=== PATIENT | female | born 1970 | race Caucasian/White ===

== ENCOUNTER → 2018-11-08 | Outpatient (CLI) | payer OTHER | END | disposition home or self-care (01) | LOC: RAD 13:19 | DX: R05 Cough (principal); H66.93 Otitis media, unspecified, bilateral; R50.9 Fever, unspecified ==

== ENCOUNTER → 2018-11-25 | Outpatient (CLI) | payer OTHER | END | disposition home or self-care (01) | LOC: RAD 10:48 | DX: M47.817 Spondylosis without myelopathy or radiculopathy, lumbosacral region (principal); G25.81 Restless legs syndrome; M54.16 Radiculopathy, lumbar region; M79.605 Pain in left leg; M79.604 Pain in right leg ==

== ENCOUNTER → 2020-06-05 | Outpatient (CLI) | payer BC ==
[2020-06-05 08:55] LABS: URINE AMPHETAMINES < 1000 (1000ng/ml); URINE BARBITURATES < 200 (200ng/ml); URINE CANNABINOIDS (THC) < 50 (50ng/ml); URINE COCAINE < 300 (300ng/ml); URINE METHADONE < 300 (300ng/ml); URINE OPIATES < 300 (300ng/ml)
[2020-06-05 08:59] LABS: URINE BENZODIAZEPINES < 200 (200ng/ml)
[2020-06-05 09:00] LABS: URINE PHENCYCLIDINE < 25 (25ng/ml)
== END | disposition home or self-care (01) ==
LOC: LAB 08:05
PROVIDERS: ATTEND Nurse Practitioner Psychiatric/Mental Health
DX: F90.2 Attention-deficit hyperactivity disorder, combined type (principal)

== ENCOUNTER → 2020-06-14 | Outpatient (CLI) | payer BC ==
[2020-06-14 10:28] LABS: PTH INTACT 75.5 pg/mL (18.5-88.0); VITAMIN D, 25-HYDROXY 43.4 ng/mL (30-100)
== END | disposition home or self-care (01) ==
LOC: LAB 08:54
PROVIDERS: ATTEND Nurse Practitioner Family
DX: E83.51 Hypocalcemia (principal)

== ENCOUNTER 2021-04-25 19:08 | Emergency (ER) | payer BC ==
[2021-04-25 20:01] LABS: BASO % 0.2 % (0.0-1.0); EOS % 0.1 % (1.0-4.0); HEMATOCRIT 39.8 % (37.0-47.0); LYMPH # 1.3 10*3/uL (1.3-4.4); LYMPH % 12.5 % (27.0-41.0); MEAN CELL VOLUME 91.5 fl (81.0-99.0); MEAN CORPUSCULAR HGB 30.1 pg (27.0-31.0); MEAN CORPUSCULAR HGB CONC 32.9 g/dl (33.0-37.0); MONO # 0.8 10*3/uL (0.1-1.0); MONO % 7.6 % (3.0-9.0); NEUT # 8.4 10*3/uL (2.3-7.9); NEUT % 79.2 % (47.0-73.0); PLATELET COUNT AUTOMATED 268 10*3/uL (130-400); RED BLOOD COUNT 4.35 10*6/uL (4.10-5.10); RED CELL DISTRI WIDTH 12.1 % (0-14.5); WHITE BLOOD COUNT 10.6 10*3/uL (4.8-10.8)
[2021-04-25 20:12] LABS: ACT PARTIAL THROMBO TIME 24.1 SECONDS (20.0-32.1); INTERNATIONAL NORM RATIO 1.1 (2.0-3.5)
[2021-04-25 20:19] LABS: ALBUMIN 4.3 gm/dl (3.1-4.5); ALKALINE PHOSPHATASE 61 U/L (45-117); BUN 12 mg/dl (7-24); CHLORIDE 104 mmol/L (98-107); CREATININE 1.26 mg/dL (0.55-1.02); POTASSIUM 3.3 mmol/L (3.5-5.1); SGOT/AST 17 IU/L (3-35); SGPT/ALT 22 U/L (12-78); SODIUM 137 mmol/L (136-145); TOTAL PROTEIN 7.9 gm/dL (6.4-8.2)
[2021-04-25 20:21] LABS: TROPONIN I < 0.015 ng/ml (<0.045)
== END 2021-04-26 01:33 | disposition home or self-care (01) ==
LOC: ED 19:08
PROVIDERS: Emergency Medicine
DX: T67.5XXA Heat exhaustion, unspecified, initial encounter (principal); F41.0 Panic disorder [episodic paroxysmal anxiety]; E87.6 Hypokalemia; X58.XXXA Exposure to other specified factors, initial encounter; Y93.89 Activity, other specified; Y92.89 Other specified places as the place of occurrence of the external cause; Y99.8 Other external cause status

== ENCOUNTER → 2021-07-17 | Outpatient (CLI) | payer BC | END | disposition home or self-care (01) | LOC: COVID19 18:05 | PROVIDERS: ATTEND Internal Medicine | DX: U07.1 COVID-19 (principal) ==

== ENCOUNTER → 2024-05-09 | Outpatient (CLI) | payer BC | END | disposition home or self-care (01) | LOC: RAD 11:20 | PROVIDERS: ATTEND Nurse Practitioner Family | DX: M79.671 Pain in right foot (principal); G25.81 Restless legs syndrome ==

== ENCOUNTER 2025-09-04 14:37 | Emergency (ER) | payer BC ==
[~2025-09-04] VITALS: Ht 170.1 cm; Wt 83.5 kg
[2025-09-04 15:31] LABS: BASO # 0.0 10*3/uL (0.0-0.1); BASO % 0.6 % (0.0-1.0); EOS # 0.1 10*3/uL (0.0-0.4); EOS % 1.5 % (1.0-4.0); MEAN CELL VOLUME 90.9 fl (81.0-99.0); MEAN CORPUSCULAR HGB 29.8 pg (27.0-31.0); MEAN PLATELET VOLUME 10.3 fl (9.6-12.3); MONO # 0.3 10*3/uL (0.1-1.0); MONO % 7.3 % (3.0-9.0); NEUT # 2.9 10*3/uL (2.3-7.9); NEUT % 61.9 % (47.0-73.0); NUCLEATED RED BLOOD CELL 0.0 % (0.0-0.0); NUCLEATED RED BLOOD CELL 0.0 10*3/uL (0.0-0.0); PLATELET COUNT AUTOMATED 225 10*3/uL (130-400); RED CELL DISTRI WIDTH 13.1 % (0-14.5)
[2025-09-04 15:38] LABS: BILIRUBIN Negative (Negative); BLOOD Trace-Intact (Negative); CLARITY Clear (Clear); COLOR Yellow (Yellow); KETONE Negative (Negative); LEUKO ESTERASE Trace (Negative); NITRITE Negative (Negative); PH 7.0 (4.5-8.0); SPECIFIC GRAVITY <= 1.005 (1.001-1.030); UROBILINOGEN 0.2 E.U./dl (0.0-1.0)
[2025-09-04 15:45] LABS: BACTERIA 1+; EPITHELIAL CELLS 21-30; MUCOUS 1+
[2025-09-04 15:50] LABS: BUN 8 mg/dl (9-23)
== END 2025-09-04 16:34 | disposition home or self-care (01) ==
LOC: ED 14:37
PROVIDERS: Nurse Practitioner Family
DX: R30.0 Dysuria (principal); R10.30 Lower abdominal pain, unspecified; R35.0 Frequency of micturition; Z88.1 Allergy status to other antibiotic agents